=== PATIENT | female | born 1935 | race Caucasian/White ===

== ENCOUNTER 2020-03-10 18:07 | Emergency (ER) | payer MEDICARE ==
[~2020-03-10] VITALS: Ht 165.1 cm; Wt 64.4 kg
--- NOTE | 2020-03-10 18:27 | NUR ---
Dr Oneil at the bedside for MSE.
--- NOTE | 2020-03-10 18:38 | NUR ---
Pt out of ER for CT.
[2020-03-10] MEDS ORDERED: TDAP DIPH,PERTUSS,TET VAC/PF 0.5 ML DISP.SYRIN IM ONE ×2 (18:39→18:45)
[2020-03-10] MEDS ORDERED: MORPHINE SULFATE 2 MG/1 ML DISP.SYRIN ONE (18:39)
[2020-03-10] MEDS ORDERED: MORPHINE SULFATE 4 MG/1 ML DISP.SYRIN IM ONE (18:45)
--- NOTE | 2020-03-10 19:24 | NUR ---
Dr Oneil place fior to scalp laceration, Pt tolorated well.
--- NOTE | 2020-03-10 19:36 | NUR ---
Patient discharged to home in stable condition. Written and verbal after care instructions given. Patient verbalizes understanding of instructions. Stressed follow up or return to ER for worsening s/s.
[2020-03-10 19:45] VITALS: BP 135/85
[2020-03-10] MEDS ORDERED: LIDOCAINE 1%-EPI 1:100,000 20 ML VIAL TP ONE (19:45)
== END 2020-03-10 19:47 | disposition home or self-care (01) ==
LOC: ER 18:11
DX: S01.01XA Laceration without foreign body of scalp, initial encounter (principal); W18.30XA Fall on same level, unspecified, initial encounter; Y92.89 Other specified places as the place of occurrence of the external cause; E03.9 Hypothyroidism, unspecified; R51.9 Headache, unspecified; Z91.041 Radiographic dye allergy status
CPT/HCPCS: 70450; 90715; A4217; A4663; J2270